=== PATIENT | female | born 1930 | race Caucasian/White ===

== ENCOUNTER 2018-10-05 12:41 | Observation (INO) ==
[2018-10-05 14:10] LABS: BASOPHILS # (AUTO) 0.1 X10^3/uL (0.0-0.1); BASOPHILS % (AUTO) 0.9 % (0.2-1.0); EOSINOPHILS # (AUTO) 0.2 x10^3/uL (0.0-0.2); EOSINOPHILS % (AUTO) 3.9 % (0.9-2.9); HEMATOCRIT 36.8 % (36.0-47.0); HEMOGLOBIN 12.5 g/dL (12.0-16.0); LYMPHOCYTES # (AUTO) 1.9 X10^3/uL (1.3-2.9); LYMPHOCYTES % (AUTO) 31.5 % (21.0-51.0); MEAN CORPUSCULAR HEMOGLOBIN 31.2 pg (27.0-34.0); MEAN CORPUSCULAR HGB CONC 33.8 g/dL (33.0-35.0); MEAN CORPUSCULAR VOLUME 92.1 fL (80.0-100.0); MEAN PLATELET VOLUME 9.1 fL (7.4-11.0); MONOCYTES # (AUTO) 0.5 x10^3/uL (0.3-0.8); MONOCYTES % (AUTO) 9.3 % (0.0-13.0); NEUTROPHILS # (AUTO) 3.2 x10^3/uL (2.2-4.8); NEUTROPHILS % (AUTO) 54.4 % (42.0-75.0); PLATELET COUNT 183 X10^3/uL (150.0-450.0); WHITE BLOOD COUNT 5.9 X10^3/uL (3.6-10.0)
[2018-10-05 14:22] VITALS: BMI 26.0
[2018-10-05 14:51] LABS: ALANINE AMINOTRANSFERASE 12 Units/L (12-78); ALBUMIN 3.4 g/dL (3.4-5.0); ALKALINE PHOSPHATASE 49 Units/L (46-116); ASPARTATE AMINO TRANSFERASE 18 Units/L (15-37); BLOOD UREA NITROGEN 21 mg/dL (7-18); CARBON DIOXIDE 21.8 mmol/L (21-32); CHLORIDE 110 mmol/L (98-107); CKMB % 2.7 % (<4); CREATINE KINASE 56 Units/L (26-192); CREATINE KINASE MB 1.5 ng/mL (0-4.0); CREATININE 1.41 mg/dL (0.55-1.02); SODIUM 142 mmol/L (136-145); TOTAL PROTEIN 6.6 g/dL (6.4-8.2); TROPONIN I < 0.02 ng/mL (0-1.5); eGFR NON BLACK RACES 38 (>60)
--- NOTE | 2018-10-05 15:25 | CT ---
HISTORY: Difficulty speaking Study: CT brain without contrast Comparison: MRI of the brain and MRA of the brain both performed March 20, 2014 Technique: Multiple axial images of the brain were obtained from the skull base to the vertex without administration of IV contrast. Findings: No acute intraparenchymal hemorrhage or mass can be identified. No extra-axial fluid collections are seen. No alteration in the attenuation of the brain parenchyma can be identified to suggest acute or subacute ischemic change. Ventricles, sulci, and cisterns demonstrate an appearance consistent with a mild degree of generalized atrophy. Patchy areas of decreased attenuation within the periventricular, subcortical, and subinsular white matter suggest changes of chronic small vessel ischemic disease. Patchy areas of decreased attenuation within the periventricular, subcortical, and subinsular white matter suggest changes of chronic small vessel ischemic disease. Postoperative changes of suspected prior aneurysm clipping are noted on the left. Bilateral basal ganglia calcifications are noted. If symptoms or clinical concern persist recommend continued follow-up for further evaluation. IMPRESSION: No acute intracranial process can be identified. Mild generalized atrophy with findings consistent with changes of chronic small vessel ischemic disease. Reported By:
[2018-10-05] MEDS ORDERED: PHARMACY CONSULT - DOSE _____ XX SCH (16:00)
[2018-10-05] MEDS: NS 1000 ML 1,000 ML IV SCH (16:28)
--- NOTE | 2018-10-05 17:27 | RAD ---
Chest PA and lateral Indication: Left head pain. Possible aneurysm. Comparison: None available Findings: There is no pneumothorax or effusion. There is no consolidation. Heart size is prominent. Impression: Borderline COPD and prominent heart size without other acute chest process identified. Reported By:
[2018-10-06 04:59] LABS: BASOPHILS % (AUTO) 0.9 % (0.2-1.0); EOSINOPHILS # (AUTO) 0.3 x10^3/uL (0.0-0.2); EOSINOPHILS % (AUTO) 4.7 % (0.9-2.9); HEMATOCRIT 34.3 % (36.0-47.0); HEMOGLOBIN 11.6 g/dL (12.0-16.0); LYMPHOCYTES # (AUTO) 1.6 X10^3/uL (1.3-2.9); LYMPHOCYTES % (AUTO) 30.5 % (21.0-51.0); MEAN CORPUSCULAR HEMOGLOBIN 31.4 pg (27.0-34.0); MEAN CORPUSCULAR HGB CONC 33.8 g/dL (33.0-35.0); MEAN CORPUSCULAR VOLUME 92.9 fL (80.0-100.0); MEAN PLATELET VOLUME 9.3 fL (7.4-11.0); MONOCYTES # (AUTO) 0.5 x10^3/uL (0.3-0.8); MONOCYTES % (AUTO) 9.5 % (0.0-13.0); NEUTROPHILS # (AUTO) 2.9 x10^3/uL (2.2-4.8); NEUTROPHILS % (AUTO) 54.4 % (42.0-75.0); PLATELET COUNT 170 X10^3/uL (150.0-450.0); RED BLOOD COUNT 3.69 X10^6/uL (3.5-5.4); RED CELL DISTRIBUTION WIDTH 14.6 % (11.6-16.5); WHITE BLOOD COUNT 5.4 X10^3/uL (3.6-10.0)
[2018-10-06 05:04] LABS: ALANINE AMINOTRANSFERASE 11 Units/L (12-78); ALBUMIN 2.8 g/dL (3.4-5.0); ALKALINE PHOSPHATASE 41 Units/L (46-116); ASPARTATE AMINO TRANSFERASE 14 Units/L (15-37); BLOOD UREA NITROGEN 21 mg/dL (7-18); CALCIUM 8.4 mg/dL (8.5-10.1); CHLORIDE 113 mmol/L (98-107); COR CA(FOR HYPOALB) 9.4 mg/dL (8.5-10.1); SODIUM 146 mmol/L (136-145); TOTAL PROTEIN 5.6 g/dL (6.4-8.2); eGFR NON BLACK RACES 35 (>60)
[2018-10-06] MEDS: NS 1000 ML 1,000 ML IV SCH (06:00)
[2018-10-06] MEDS ORDERED: NS 1/2 1000 ML IV 1,000 ML ONE (07:58)
[2018-10-06] MEDS ORDERED: NS 1/2 1000 ML IV 1,000 ML IV SCH (08:00)
[2018-10-06] MEDS ORDERED: NS 1000 ML 1,000 ML IV SCH (08:00)
--- NOTE | 2018-10-06 11:46 | DR.UPDATE ---
H&P Update History and Physical Update: History and Physical reviewed and patient examined. Changes noted: Yes with the following: PRESENTED TO THE OFFICE WITH SLURRED SPEECH, WEAKNESS, AND UNSTEADY GAIT. SHE WAS ADMITTED FOR FURTHER EVALUATION AND TREATMENT TO RULE OUT ACUTE CVA. ON ADMISSION, WE PLAN TO OBTAIN LABS AND A BRAIN CT WITHOUT CONTRAST. WE WILL HAVE PHYSICAL THERAPY EVALUATE PATIENT. OTHERWISE, WE WILL NORMAL SALINE AT 80ML/HR AND FOLLOW UP WITH AM LABS. Prescription drug monitoring program results: PDMP reviewed and no concerns identified
--- NOTE | 2018-10-06 13:20 | CT ---
Exam: Head CT without contrast History: 88-year-old female with weakness and unsteady gait. Previous intracranial aneurysm in 2013. Comparison: Head CT from 10/05/2018. Technique: Axial imaging was performed from the vertex to the base the skull without intravenous contrast being administered. Sagittal and coronal reformations were generated. Automated exposure control techniques were used for this exam. Findings: Generalized age related atrophic changes are present. However there is no evidence of intracranial hemorrhage or extracerebral fluid collections. Postoperative changes related to previous aneurysm clipping are again seen on the left. Ventricles are symmetric in size and position with no mass effect seen. Patchy low density is present in a periventricular white matter distribution, consistent with chronic small vessel ischemia. On the bone windows, no acute bony abnormality is seen. Visualized aspect of the paranasal sinuses and mastoid air cells are clear. Impression: No acute intracranial abnormality is seen on this study. Chronic findings as described above. Reported By:
[2018-10-06 13:52] VITALS: BP 125/64
== END 2018-10-06 16:05 | disposition home or self-care (01) ==
LOC: ICU
PROVIDERS: ADMIT Internal Medicine; ATTEND Internal Medicine
DX: I10 Essential (primary) hypertension; K21.9 Gastro-esophageal reflux disease without esophagitis; R47.81 Slurred speech; E03.8 Other specified hypothyroidism; Z79.899 Other long term (current) drug therapy; R51 Headache; R94.4 Abnormal results of kidney function studies; R26.0 Ataxic gait
CPT/HCPCS: 36415; 70450; 71020; 71046; 80053; 82550; 82553; 84484; 85025; 96367; 97162; 97165; A4222; G0378; J7030

== ENCOUNTER 2019-03-07 04:32 | Observation (INO) ==
[2019-03-07 04:46] VITALS: BMI 26.4
--- NOTE | 2019-03-07 04:57 | DR.GENAD ---
HPI Time Seen Time Seen by Provider: 03/07/19 04:49 PCP Primary Care Physician: TAMIR ZENG Complaint/Symptoms Chief Complaint Doctors Comments: An 88 y/o female presenting with c/o being awakened from sleep 0200 hrs. by pain. Location is in LLQ, she describes it as sharp and it worsens with supine position but eases a bit while asit. She had ta crista 2 tabs. of Extra Strength Tylenol at 0215 hrs. She gave a hx. previous Diverticulitis. Chief Complaint:: LLQ PAIN THIS EVENING; TYLENOL X 3 TAKEN AT 0300; RATES PAIN 8/10; PATIENT HAS HX OF DIVERTICULITIS Self Treatment fo Chief Complaint: TYLENOL Source History Provided: Patient Mode of Arrival Mode of Arrival: Ambulatory Timing Onset of Chief Complaint: 03/06/19 Came on: Gradually PMH PMH Past Medical History: Yes Past Medical History Comment: DIVERTICULITIS Past Surgical History: Yes Past Surgical History Comment: ANEURYSM Family History History of Family Medical Conditions: No Family Medical History: [place], Heart Failure and Hypertension Social History Alcohol Use: None Do you use any recreational Drugs:: No Lives With: Family Lives Where: Home infectious screening In the last 2 months have you had wt loss of >10#?: NO Have you had fever, night sweats or hemotysis?: No Have you traveled outside the country in the last 6 months?: No Isolation: Standard ROS Review of Systems Constitutional: No Symptoms Reported Eyes: No Symptoms Reported ENTM: No Symptoms Reported Respiratoy: No Symptoms Reported Cardiovascular: No Symptoms Reported Gastrointestinal/Abdominal: Abdominal Pain (LLQ) Genitourinary: No Symptoms Reported Neurological: No Symptoms Reported Musculoskeletal: No Symptoms Reported Integumentary: No Symptoms Reported Hematologic/Lymphatic: No Symptoms Reported Endocrine: No Symptoms Reported Psychiatric: No Symptoms Reported PE Vital Signs Vitals: Temperature 97.6 F Pulse Rate 90 Respiratory Rate 22 Blood Pressure 143/66 O2 Sat by Pulse Oximetry 98 General Limitations: No Limitations General Appearance: Alert and In No Apparent Distress Head Head Exam: Normal Inspection, Atraumatic and Normocephalic Eyes Eye exam: Normal Appearance and EOMI ENT ENT Exam: Normal Exam, Normal Oropharynx and Mucous Membranes Moist Neck Neck Exam: Normal Inspection, Full ROM and Trachea Midline Chest Chest Inspection: Normal Inspection and Symmetric Chest Wall Rise Respiratory Respiratory Exam: Normal Lung Sounds Bilat Cardiovascular Cardiovascular Exam: Regular Rate, Normal Rhythm, +S1 and +S2 Abdominal Exam Abdominal Exam: Normal Inspection, Normal Bowel Sounds and Soft Extremities Extremities Exam: Normal Inspection and Full ROM Back Back Exam: Normal Inspection and Full ROM Neurologic Neurological Exam: Alert and Oriented X3 Psychiatric Psychiatric Exam: Normal Mood and Agitated Skin Skin Exam: Dry and Normal Color COURSE Reevaluation 1st: Improved Education/Counseling Education/Counseling: Patient, Family, Education and Counseling Educated On: Treatment, Diagnosis, Prognosis and Needs for Follow Up ROR Labs Reviewed Laboratory Results Reviewed?: Yes Result Diagrams: 03/07/19 05:10 03/07/19 05:10 Laboratory: WBC 8.1 X10^3/uL (3.6-10.0) 03/07/19 05:10 RBC 4.39 X10^6/uL (3.5-5.4) 03/07/19 05:10 Hgb 13.7 g/dL (12.0-16.0) 03/07/19 05:10 Hct 41.3 % (36.0-47.0) 03/07/19 05:10 MCV 94.1 fL (80.0-100.0) 03/07/19 05:10 MCH 31.2 pg (27.0-34.0) 03/07/19 05:10 MCHC 33.1 g/dL (33.0-35.0) 03/07/19 05:10 RDW 14.1 % (11.6-16.5) 03/07/19 05:10 Plt Count 194 X10^3/uL (150.0-450.0) 03/07/19 05:10 MPV 8.9 fL (7.4-11.0) 03/07/19 05:10 Neut % (Auto) 83.9 % (42.0-75.0) H 03/07/19 05:10 Lymph % (Auto) 11.2 % (21.0-51.0) L 03/07/19 05:10 [place] % (Auto) 3.0 % (0.0-13.0) 03/07/19 05:10 Eos % (Auto) 1.7 % (0.9-2.9) 03/07/19 05:10 Baso % (Auto) 0.2 % (0.2-1.0) 03/07/19 05:10 Neut # (Auto) 6.8 x10^3/uL (2.2-4.8) H 03/07/19 05:10 Lymph # (Auto) 0.9 X10^3/uL (1.3-2.9) L 03/07/19 05:10 [place] # (Auto) 0.2 x10^3/uL (0.3-0.8) L 03/07/19 05:10 Eos # (Auto) 0.1 x10^3/uL (0.0-0.2) 03/07/19 05:10 Baso # (Auto) 0.0 X10^3/uL (0.0-0.1) 03/07/19 05:10 Absolute Nucleated RBC 0.0 /100WBC 03/07/19 05:10 Sodium 144 mmol/L (136-145) 03/07/19 05:10 Corrected Sodium TNP 03/07/19 05:10 Potassium 3.8 mmol/L (3.5-5.1) 03/07/19 05:10 Chloride 108 mmol/L (98-107) H 03/07/19 05:10 Carbon Dioxide 26.5 mmol/L (21-32) 03/07/19 05:10 BUN 23 mg/dL (7-18) H 03/07/19 05:10 Creatinine 1.55 mg/dL (0.55-1.02) H 03/07/19 05:10 Est GFR (MDRD) Af Amer 41 (>60) L 03/07/19 05:10 Est GFR (MDRD) Non-Af 34 (>60) L 03/07/19 05:10 Glucose 101 mg/dL (65-99) H 03/07/19 05:10 Calcium 9.1 mg/dL (8.5-10.1) 03/07/19 05:10 Corrected Calcium TNP 03/07/19 05:10 Total Bilirubin 0.30 mg/dL (0.2-1.0) 03/07/19 05:10 AST 15 Units/L (15-37) 03/07/19 05:10 ALT 11 Units/L (12-78) L 03/07/19 05:10 Alkaline Phosphatase 54 Units/L (46-116) 03/07/19 05:10 Total Protein 6.9 g/dL (6.4-8.2) 03/07/19 05:10 Albumin 3.4 g/dL (3.4-5.0) 03/07/19 05:10 Globulin 3.5 g/dL (2.5-4.5) 03/07/19 05:10 Albumin/Globulin Ratio 1.0 Ratio (1.1-2.1) L 03/07/19 05:10 Other Results Comments: Name: ROYAL LUNDBERG : 1930 Sex: F Location: ER Order Number(s): [id number] Procedure(s):ABDOMEN/PELVIS W/O CON Ordering Physician: MELINDA HOPPER Primary Care: Tamir Zeng Service Date: 03/07/19 Service Time: 448 History: Left abdominal and flank pain new Study: CT abdomen and pelvis without intravenous contrast. After oral enhancement of the gastrointestinal tract. Sagittal and coronal reformations were provided. Comparison: None Findings: The visualized lung bases are grossly clear. The liver and spleen and pancreas are unremarkable. There is a peripherally calcified low-attenuation mass in the upper pole of the left kidney measuring up to 8.3 cm in diameter. Calcification in the wall is thickened and irregular There marked thinning of left renal cortex. There is no hydronephrosis. The right kidney is unremarkable. The adrenal glands are unremarkable. The gallbladder is normal. There is a atherosclerotic calcification without aneurysm. There is no ascites or adenopathy. There is severe sigmoid diverticulosis without stranding of fat planes. Mesenteric lymph nodes adjacent to the cecum AP and the. There is no adnexal mass .The bladder is empty . There are prominent degenerative changes in the lumbar spine. Impression: 8.3 cm rounded peripherally calcified low attenuation mass in the upper pole of the left kidney with marked left renal cortical thinning. Bosniak class 3 mass. Sigmoid diverticulosis without evidence for inflammation. Reported By: Opioid Opioid Risk Tool Age (Geovanni box if 16-45): No History of Preadolescent Sexual Abuse: No Total: 0 Total Score Risk Category: Low Risk Copyright: [place] LR predicting aberrant behaviors Diagnosis Discharge Problem: Mass of left kidney Abdominal pain Qualifiers: Abdominal location: left lower quadrant Qualified Code(s): R10.32 - Left lower quadrant pain
[2019-03-07 05:23] LABS: BASOPHILS % (AUTO) 0.2 % (0.2-1.0); EOSINOPHILS # (AUTO) 0.1 x10^3/uL (0.0-0.2); EOSINOPHILS % (AUTO) 1.7 % (0.9-2.9); HEMATOCRIT 41.3 % (36.0-47.0); HEMOGLOBIN 13.7 g/dL (12.0-16.0); LYMPHOCYTES # (AUTO) 0.9 X10^3/uL (1.3-2.9); LYMPHOCYTES % (AUTO) 11.2 % (21.0-51.0); MEAN CORPUSCULAR HEMOGLOBIN 31.2 pg (27.0-34.0); MEAN CORPUSCULAR HGB CONC 33.1 g/dL (33.0-35.0); MEAN CORPUSCULAR VOLUME 94.1 fL (80.0-100.0); MEAN PLATELET VOLUME 8.9 fL (7.4-11.0); MONOCYTES # (AUTO) 0.2 x10^3/uL (0.3-0.8); NEUTROPHILS # (AUTO) 6.8 x10^3/uL (2.2-4.8); NEUTROPHILS % (AUTO) 83.9 % (42.0-75.0); PLATELET COUNT 194 X10^3/uL (150.0-450.0); RED BLOOD COUNT 4.39 X10^6/uL (3.5-5.4); RED CELL DISTRIBUTION WIDTH 14.1 % (11.6-16.5); WHITE BLOOD COUNT 8.1 X10^3/uL (3.6-10.0)
[2019-03-07 05:31] LABS: BLOOD UREA NITROGEN 23 mg/dL (7-18); CALCIUM 9.1 mg/dL (8.5-10.1); CARBON DIOXIDE 26.5 mmol/L (21-32); CHLORIDE 108 mmol/L (98-107); CREATININE 1.55 mg/dL (0.55-1.02); SODIUM 144 mmol/L (136-145); eGFR NON BLACK RACES 34 (>60)
[2019-03-07 05:52] LABS: ALANINE AMINOTRANSFERASE 11 Units/L (12-78); ALBUMIN 3.4 g/dL (3.4-5.0); ALKALINE PHOSPHATASE 54 Units/L (46-116); ASPARTATE AMINO TRANSFERASE 15 Units/L (15-37); TOTAL PROTEIN 6.9 g/dL (6.4-8.2)
--- NOTE | 2019-03-07 07:44 | CT ---
History: Left abdominal and flank pain newStudy: CT abdomen and pelvis without intravenous contrast. After oral enhancement of the gastrointestinal tract. Sagittal and coronal reformations were provided.Comparison: NoneFindings: The visualized lung bases are grossly clear. The liver and spleen and pancreas are unremarkable. There is a peripherally calcified low-attenuation mass in the upper pole of the left kidney measuring up to 8.3 cm in diameter. Calcification in the wall is thickened and irregular There marked thinning of left renal cortex. There is no hydronephrosis. The right kidney is unremarkable. The adrenal glands are unremarkable. The gallbladder is normal. There is a atherosclerotic calcification without aneurysm. There is no ascites or adenopathy. There is severe sigmoid diverticulosis without stranding of fat planes. Mesenteric lymph nodes adjacent to the cecum AP and the. There is no adnexal mass .The bladder is empty . There are prominent degenerative changes in the lumbar spine.Impression: 8.3 cm rounded peripherally calcified low attenuation mass in the upper pole of the left kidney with marked left renal cortical thinning. Bosniak class 3 mass.Sigmoid diverticulosis without evidence for inflammation.Reported By:
[2019-03-07] MEDS ORDERED: NORCO 5/325 MG TAB PO PRN (08:23)
[2019-03-07] MEDS: NS 1000 ML 1,000 ML IV SCH ×2 (09:21→21:06)
[2019-03-07] MEDS: TYLENOL 325 MG TAB PO PRN (12:33)
--- NOTE | 2019-03-07 21:40 | DR.H&P ---
H&P - History & Physical for Day of: H&P Date: 03/07/19 - Chief Complaint Chief Complaint: LLQ PAIN - History of Present Illness History of Present Illness: IS A 88 YEAR OLD PATIENT OF OURS WHO PRESENTED TO THE ER WITH COMPLAINTS OF LLQ PAIN. PAIN IS DESCRIBED SHARP AND WORSENS WHEN SHE IS IN THE SUPINE POSITION. SHE HAS A HISTORY OF DIVERTICULITIS AND RENAL DISEASE. SHE REPORTS THAT RIGHT KIDNEY IS FUNCTIONING AT 40% AND LEFT KIDNEY 0%. ON ARRIVAL, VITALS WERE 97.6-90-22-98%-143/66. LABS WERE OBTAINED. ABNORMAL LAB VALUES INCLUDE THE FOLLOWING: CHLORIDE 108, BUN 23, CREATININE 1.55, GLUCOSE 101, ALT 11. AN ABDOMEN/PELVIS CT WAS OBTAINED AND REVEALED: 8.3 cm rounded peripherally calcified low attenuation mass in the upper pole of the left kidney with marked left renal cortical thinning. Bosniak class 3 mass. Sigmoid diverticulosis without evidence for inflammation. SHE WAS ADMITTED FOR FURTHER EVALUATION AND TREATMENT OF OF LLQ ABDOMINAL PAIN AND LEFT RENAL MASS. SHE WAS STARTED ON NORMAL SALINE AT 80ML/HR AND [place] 5/325 1 TABLET Q6H PRN PAIN. OTHERWISE, WE PLAN TO FOLLOW UP WITH AM LABS AND CONTINUE TO MONITOR. - Family History Family Medical History: ME, Heart Failure, Hypertension - Social History Does patient currently use any type of tobacco product: No Have you used tobacco products in the last 12 months: No Type of Tobacco Use: None Does any household member use tobacco: No Alcohol Use: None Drug Use: None - Medications Home Medications: No Known Drug Allergies Allergy (Verified 10/05/18 13:43) CONTINUE taking the following medications albuterol sulfate [Ventolin HFA] 2 inh INHALATION Q4H PRN 03/07/19 [History] fluticasone propionate [Flonase Allergy Relief] 1 mcg INTRANASAL DAILY 03/07/19 [History] valsartan 320 mg PO DAILY 03/07/19 [History] - Review of Systems Constitutional: Weakness Eyes: No Symptoms Reported ENT: No Symptoms Reported Respiratory: No Symptoms Reported Cardiovascular: No Symptoms Reported Gastrointestinal: See HPI, Abdominal Pain Genitourinary: No Symptoms Reported Musculoskeletal: No Symptoms Reported Skin: No Symptoms Reported Neurological: Weakness - Physical Exam Vital Signs: Temperature 98.9 F Pulse Rate [Right Brachial] 86 Pulse Rate 90 Respiratory Rate 18 Blood Pressure [Right Arm] 152/58 Blood Pressure 143/66 O2 Sat by Pulse Oximetry 97 Oriented: Normal Eyes: Normal Ear: Normal Nose: Normal Throat: Normal Respiratory: Diminished Throughout Cardiovascular: Normal. negative: S3, S4, Murmur : Normal Auscultation: Bowel Sounds: Normal Palpation: Normal Tenderness: LLQ, Moderate. negative: Rebound, Guarding, Rigidity Skin: Normal Musculoskeletal: Normal Psychiatric: Normal Mood Description: Calm Affect: Normal Speech Pattern: Clear - Assessment/Plan (1) Abdominal pain Qualifiers: Abdominal location: left lower quadrant Qualified Code(s): R10.32 - Left lower quadrant pain Status: Acute Plan: ADMIT, NORMAL SALINE AT 80ML/HR, [place], OBTAIN RECORDS FROM HOUSEHOLD APPLIANCE ASSEMBLER, CONTINUE TO MONITOR (2) Mass of left kidney Status: Acute - Allergies Allergies/Adverse Reactions: Allergies Allergy/AdvReac Type Severity Reaction Status Date / Time No Known Drug Allergies Allergy Verified 10/05/18 13:43
[2019-03-08 05:38] LABS: BASOPHILS % (AUTO) 0.2 % (0.2-1.0); EOSINOPHILS # (AUTO) 0.2 x10^3/uL (0.0-0.2); EOSINOPHILS % (AUTO) 1.8 % (0.9-2.9); HEMATOCRIT 34.1 % (36.0-47.0); HEMOGLOBIN 11.5 g/dL (12.0-16.0); LYMPHOCYTES # (AUTO) 1.3 X10^3/uL (1.3-2.9); LYMPHOCYTES % (AUTO) 14.6 % (21.0-51.0); MEAN CORPUSCULAR HEMOGLOBIN 31.4 pg (27.0-34.0); MEAN CORPUSCULAR HGB CONC 33.8 g/dL (33.0-35.0); MEAN CORPUSCULAR VOLUME 93.1 fL (80.0-100.0); MONOCYTES # (AUTO) 0.5 x10^3/uL (0.3-0.8); MONOCYTES % (AUTO) 5.6 % (0.0-13.0); NEUTROPHILS # (AUTO) 6.8 x10^3/uL (2.2-4.8); NEUTROPHILS % (AUTO) 77.8 % (42.0-75.0); PLATELET COUNT 169 X10^3/uL (150.0-450.0); RED BLOOD COUNT 3.66 X10^6/uL (3.5-5.4); RED CELL DISTRIBUTION WIDTH 14.1 % (11.6-16.5); WHITE BLOOD COUNT 8.8 X10^3/uL (3.6-10.0)
[2019-03-08 05:41] LABS: ALANINE AMINOTRANSFERASE 6 Units/L (12-78); ALBUMIN 2.6 g/dL (3.4-5.0); ALKALINE PHOSPHATASE 45 Units/L (46-116); ASPARTATE AMINO TRANSFERASE 12 Units/L (15-37); BLOOD UREA NITROGEN 19 mg/dL (7-18); CALCIUM 8.1 mg/dL (8.5-10.1); CARBON DIOXIDE 25.9 mmol/L (21-32); CHLORIDE 108 mmol/L (98-107); COR CA(FOR HYPOALB) 9.2 mg/dL (8.5-10.1); CREATININE 1.37 mg/dL (0.55-1.02); SODIUM 141 mmol/L (136-145); TOTAL PROTEIN 5.7 g/dL (6.4-8.2); eGFR NON BLACK RACES 39 (>60)
[2019-03-08] MEDS: TYLENOL 325 MG TAB PO PRN (09:22)
[2019-03-08] MEDS: NS 1000 ML 1,000 ML IV SCH ×2 (09:23→11:01)
[2019-03-08] MEDS: LIPITOR TAB 20 MG PO SCH (10:56)
[2019-03-08] MEDS: DIOVAN TAB 160 MG PO SCH (10:56)
[2019-03-08] MEDS: PROTONIX TAB 40 MG PO SCH ×2 (10:56→20:09)
[2019-03-08] MEDS: ECOTRIN TAB 325 MG PO SCH (10:57)
[2019-03-08] MEDS: FLONASE NASAL SPRAY ENOSTRIL SCH (10:57)
[2019-03-08] MEDS: SYNTHROID 75 mcg TAB PO SCH (11:01)
[2019-03-08] MEDS ORDERED: RANITIDINE HCL 150 MG PO SCH (21:00)
[2019-03-08] MEDS ORDERED: SINGULAIR TAB 10 MG PO SCH (21:00)
[2019-03-09] MEDS: NS 1000 ML 1,000 ML IV SCH (00:37)
[2019-03-09 05:22] LABS: BASOPHILS # (AUTO) 0.1 X10^3/uL (0.0-0.1); BASOPHILS % (AUTO) 0.6 % (0.2-1.0); EOSINOPHILS # (AUTO) 0.3 x10^3/uL (0.0-0.2); EOSINOPHILS % (AUTO) 4.1 % (0.9-2.9); HEMOGLOBIN 10.6 g/dL (12.0-16.0); LYMPHOCYTES # (AUTO) 1.2 X10^3/uL (1.3-2.9); LYMPHOCYTES % (AUTO) 14.7 % (21.0-51.0); MEAN CORPUSCULAR HEMOGLOBIN 31.6 pg (27.0-34.0); MEAN CORPUSCULAR HGB CONC 34.1 g/dL (33.0-35.0); MEAN CORPUSCULAR VOLUME 92.7 fL (80.0-100.0); MEAN PLATELET VOLUME 8.7 fL (7.4-11.0); MONOCYTES # (AUTO) 0.7 x10^3/uL (0.3-0.8); MONOCYTES % (AUTO) 8.4 % (0.0-13.0); NEUTROPHILS # (AUTO) 5.9 x10^3/uL (2.2-4.8); NEUTROPHILS % (AUTO) 72.2 % (42.0-75.0); PLATELET COUNT 151 X10^3/uL (150.0-450.0); RED BLOOD COUNT 3.34 X10^6/uL (3.5-5.4); RED CELL DISTRIBUTION WIDTH 13.8 % (11.6-16.5); WHITE BLOOD COUNT 8.2 X10^3/uL (3.6-10.0)
[2019-03-09 05:41] LABS: ALANINE AMINOTRANSFERASE 8 Units/L (12-78); ALBUMIN 2.2 g/dL (3.4-5.0); ALKALINE PHOSPHATASE 45 Units/L (46-116); ASPARTATE AMINO TRANSFERASE 13 Units/L (15-37); BLOOD UREA NITROGEN 14 mg/dL (7-18); CALCIUM 7.6 mg/dL (8.5-10.1); CARBON DIOXIDE 23.3 mmol/L (21-32); CHLORIDE 110 mmol/L (98-107); CREATININE 1.13 mg/dL (0.55-1.02); SODIUM 141 mmol/L (136-145); TOTAL PROTEIN 5.3 g/dL (6.4-8.2); eGFR NON BLACK RACES 49 (>60)
[2019-03-09] MEDS ORDERED: K-RIDER 10 MEQ/NS 100 ML 10 MEQ/100 ML BAG IV PRN (05:44)
[2019-03-09] MEDS ORDERED: MICRO K EXTEN CAP 10 MEQ PO PRN (05:44)
[2019-03-09] MEDS ORDERED: KLOR-CON PO PRN (05:44)
[2019-03-09] MEDS ORDERED: POTASSIUM CHL 60 MEQ/NS 0.45% 500 ML IV PRN (05:44)
[2019-03-09] MEDS ORDERED: K-DUR TAB 20 MEQ PO PRN (05:44)
[2019-03-09] MEDS ORDERED: POTASSIUM CHLORIDE LIQ 20 MEQ UDC PO PRN (05:44)
[2019-03-09] MEDS ORDERED: POTASSIUM CHL 40 MEQ/NS 0.45% 500 ML IV PRN (05:44)
[2019-03-09] MEDS: MAGNESIUM SULFATE 1 GRAM/100 mL PREMIX 1 GM/100 ML BAG IV PRN ×2 (06:41→08:41)
[2019-03-09] MEDS: SYNTHROID 75 mcg TAB PO SCH (06:41)
[2019-03-09 08:23] VITALS: BP 143/73
[2019-03-09] MEDS: DIOVAN TAB 160 MG PO SCH (08:41)
[2019-03-09] MEDS: LIPITOR TAB 20 MG PO SCH (08:42)
[2019-03-09] MEDS: FLONASE NASAL SPRAY ENOSTRIL SCH (08:42)
[2019-03-09] MEDS: ECOTRIN TAB 325 MG PO SCH (08:42)
[2019-03-09] MEDS: PROTONIX TAB 40 MG PO SCH (08:42)
--- NOTE | 2019-03-09 10:03 | PCM.PROG ---
Progress Note - Progress Note for Day of Date of Exam: 03/08/19 - Subjective Subjective: WAS ADMITTED FOR LLQ ABDOMINAL PAIN AND A LEFT RENAL MASS. TODAY, SHE IS ALERT AND ORIENTED, LYING IN BED ON MORNING ROUNDS. SHE CONTINUES WITH COMPLAINTS OF ABDOMINAL PAIN TODAY, BUT REPORTS SLIGHT IMPROVEMENT SINCE YESTERDAY. ON EXAMINATION, HEART IS REGULAR IN RATE AND RHYTHM. ABDOMEN IS ROUND, SOFT, AND NOTED WITH LLQ TENDERNESS. NORMAL BOWEL SOUNDS ARE NOTED IN ALL QUADRANTS. HER VITALS THIS MORNING ARE: 99.4-97-20-97%-173/71. LABS WERE OBTAINED. ABNORMAL LAB VALUES INCLUDE THE FOLLOWING: HGB 11.5, HCT 34.1, CHLORIDE 108, BUN 19, CREATININE 1.37, CALCIUM 8.1, AST 12, ALT 6, ALK PHOS 45, TOTAL PROTEIN 5.7, ALBUMIN 2.6. TODAY, WE WILL CONTINUE WITH IV HYDRATION AND PAIN MANAGEMENT. WE WILL OBTAIN RECORDS FROM HER ANY COMMODITY SALES DELIVERER. OTHERWISE, WE WILL FOLLOW UP WITH AM LABS AND CONTINUE TO MONITOR. - Past Medical Family Social History Past Med/Fam/Surg Hx: No changes since H&P Allergies: Allergies No Known Drug Allergies Allergy (Verified 10/05/18 13:43) - Review of Systems ROS: No change since H&P - Vital Signs and I&O's Vital Signs: Temperature 97.8 F Pulse Rate [Right Brachial] 76 Pulse Rate 90 Respiratory Rate 18 Blood Pressure [Right Arm] 143/73 Blood Pressure 143/66 O2 Sat by Pulse Oximetry 96 Intake and Output: Intake & Output 03/06/19 03/07/19 03/08/19 03/09/19 11:59 11:59 11:59 11:59 Intake Total 1240 / 1240 1370 / 1370 Balance 1240 / 1240 1370 / 1370 - Physical Exam Oriented: Normal Eyes: Normal Ear: Normal Nose: Normal Throat: Normal Respiratory: Generalized, Diminished Cardiovascular: Normal. negative: S3, S4, Murmur : Normal Auscultation: Bowel Sounds: Normal Tenderness: LLQ, Moderate. negative: Rebound, Guarding, Rigidity Skin: Normal Musculoskeletal: Normal Psychiatric: Normal Mood Description: Calm Affect: Normal Speech Pattern: Clear - Laboratory and Diagnostics Result Diagrams: 03/09/19 04:54 03/09/19 04:54 Labs: Laboratory WBC 8.2 X10^3/uL (3.6-10.0) 03/09/19 04:54 RBC 3.34 X10^6/uL (3.5-5.4) L 03/09/19 04:54 Hgb 10.6 g/dL (12.0-16.0) L 03/09/19 04:54 Hct 31.0 % (36.0-47.0) L 03/09/19 04:54 MCV 92.7 fL (80.0-100.0) 03/09/19 04:54 MCH 31.6 pg (27.0-34.0) 03/09/19 04:54 MCHC 34.1 g/dL (33.0-35.0) 03/09/19 04:54 RDW 13.8 % (11.6-16.5) 03/09/19 04:54 Plt Count 151 X10^3/uL (150.0-450.0) 03/09/19 04:54 MPV 8.7 fL (7.4-11.0) 03/09/19 04:54 Neut % (Auto) 72.2 % (42.0-75.0) 03/09/19 04:54 Lymph % (Auto) 14.7 % (21.0-51.0) L 03/09/19 04:54 [place] % (Auto) 8.4 % (0.0-13.0) 03/09/19 04:54 Eos % (Auto) 4.1 % (0.9-2.9) H 03/09/19 04:54 Baso % (Auto) 0.6 % (0.2-1.0) 03/09/19 04:54 Neut # (Auto) 5.9 x10^3/uL (2.2-4.8) H 03/09/19 04:54 Lymph # (Auto) 1.2 X10^3/uL (1.3-2.9) L 03/09/19 04:54 [place] # (Auto) 0.7 x10^3/uL (0.3-0.8) 03/09/19 04:54 Eos # (Auto) 0.3 x10^3/uL (0.0-0.2) H 03/09/19 04:54 Baso # (Auto) 0.1 X10^3/uL (0.0-0.1) 03/09/19 04:54 Absolute Nucleated RBC 0.1 /100WBC 03/09/19 04:54 Sodium 141 mmol/L (136-145) 03/09/19 04:54 Corrected Sodium TNP 03/09/19 04:54 Potassium 3.5 mmol/L (3.5-5.1) 03/09/19 04:54 Chloride 110 mmol/L (98-107) H 03/09/19 04:54 Carbon Dioxide 23.3 mmol/L (21-32) 03/09/19 04:54 BUN 14 mg/dL (7-18) 03/09/19 04:54 Creatinine 1.13 mg/dL (0.55-1.02) H 03/09/19 04:54 Est GFR (MDRD) Af Amer 59 (>60) 03/09/19 04:54 Est GFR (MDRD) Non-Af 49 (>60) L 03/09/19 04:54 Glucose 94 mg/dL (65-99) 03/09/19 04:54 Calcium 7.6 mg/dL (8.5-10.1) L 03/09/19 04:54 Corrected Calcium 9.0 mg/dL (8.5-10.1) 03/09/19 04:54 Magnesium 1.7 mg/dL (1.7-2.9) 03/09/19 04:54 Total Bilirubin 0.60 mg/dL (0.2-1.0) 03/09/19 04:54 AST 13 Units/L (15-37) L 03/09/19 04:54 ALT 8 Units/L (12-78) L 03/09/19 04:54 Alkaline Phosphatase 45 Units/L (46-116) L 03/09/19 04:54 Total Protein 5.3 g/dL (6.4-8.2) L 03/09/19 04:54 Albumin 2.2 g/dL (3.4-5.0) L 03/09/19 04:54 Globulin 3.1 g/dL (2.5-4.5) 03/09/19 04:54 Albumin/Globulin Ratio 0.7 Ratio (1.1-2.1) L 03/09/19 04:54 - Plan (1) Abdominal pain Status: Acute Qualifiers: Abdominal location: left lower quadrant Qualified Code(s): R10.32 - Left lower quadrant pain Plan: NORMAL SALINE AT 80ML/HR, [place], OBTAIN RECORDS FROM ANY COMMODITY SALES DELIVERER, CONTINUE TO MONITOR (2) Mass of left kidney Status: Acute
== END 2019-03-09 11:10 | disposition home or self-care (01) ==
LOC: ER 04:33 → MED/SURG 04:33
PROVIDERS: ADMIT Internal Medicine; ATTEND Internal Medicine
DX: R26.89 Other abnormalities of gait and mobility; K57.30 Diverticulosis of large intestine without perforation or abscess without bleeding; R94.4 Abnormal results of kidney function studies; N28.89 Other specified disorders of kidney and ureter; R10.32 Left lower quadrant pain; R13.11 Dysphagia, oral phase
CPT/HCPCS: 36415; 74176; 80053; 83735; 85025; 94760; 96360; 96361; 96365; 97162; 99284; A4222; G0378; J3475; J3490; J7030

== ENCOUNTER 2022-07-01 15:04 | Observation (INO) ==
[2022-07-01] MEDS ORDERED: PROVENTIL NEB TX 0.083% 2.5MG/ 3ML NEB PRN (15:58)
[2022-07-01] MEDS ORDERED: TUSSIONEX PENNKINETIC SUSP PO PRN (16:00)
[2022-07-01 16:33] LABS: BASOPHILS # (AUTO) 0.1 X10^3/uL (0.0-0.1); BASOPHILS % (AUTO) 0.8 % (0.2-1.0); EOSINOPHILS # (AUTO) 0.3 x10^3/uL (0.0-0.2); EOSINOPHILS % (AUTO) 3.6 % (0.9-2.9); HEMATOCRIT 37.6 % (36.0-47.0); HEMOGLOBIN 12.6 g/dL (12.0-16.0); LYMPHOCYTES # (AUTO) 1.4 X10^3/uL (1.3-2.9); LYMPHOCYTES % (AUTO) 18.5 % (21.0-51.0); MEAN CORPUSCULAR HEMOGLOBIN 30.6 pg (27.0-34.0); MEAN CORPUSCULAR HGB CONC 33.4 g/dL (33.0-35.0); MEAN CORPUSCULAR VOLUME 91.7 fL (80.0-100.0); MEAN PLATELET VOLUME 7.9 fL (7.4-11.0); MONOCYTES # (AUTO) 0.9 x10^3/uL (0.3-0.8); MONOCYTES % (AUTO) 12.4 % (0.0-13.0); NEUTROPHILS # (AUTO) 4.8 x10^3/uL (2.2-4.8); NEUTROPHILS % (AUTO) 64.7 % (42.0-75.0); RED CELL DISTRIBUTION WIDTH 14.1 % (11.6-16.5); WHITE BLOOD COUNT 7.4 X10^3/uL (3.6-10.0)
[2022-07-01 16:47] LABS: ALANINE AMINOTRANSFERASE 14 Units/L (12-78); ALBUMIN 2.7 g/dL (3.4-5.0); ALKALINE PHOSPHATASE 69 Units/L (46-116); ASPARTATE AMINO TRANSFERASE 22 Units/L (15-37); BLOOD UREA NITROGEN 34 mg/dL (7-18); CALCIUM 11.7 mg/dL (8.5-10.1); CARBON DIOXIDE 27.1 mmol/L (21-32); CHLORIDE 108 mmol/L (98-107); COR CA(FOR HYPOALB) 12.7 mg/dL (8.5-10.1); CREATININE 1.69 mg/dL (0.55-1.02); SODIUM 141 mmol/L (136-145); eGFR NON BLACK RACES 30 (>60)
[2022-07-01] MEDS ORDERED: LEVAQUIN PREMIX IV 500 MG 500 MG/100 ML BAG IV SCH (17:00)
[2022-07-01] MEDS: NS 1/2 1,000 ML IV 1,000 ML IV SCH (18:47)
[2022-07-01] MEDS: ROBITUSSIN DM PO SCH ×2 (18:48→21:01)
[2022-07-01] MEDS: VSL#3 PO SCH (18:48)
[2022-07-01] MEDS ORDERED: NS 1/2 1,000 ML IV 1,000 ML IV ONE (19:11)
--- NOTE | 2022-07-01 21:04 | VAS ---
HISTORYBLE TENDERNESSSTUDYLOWER EXT VENOUS, BILATERALCOMPARISONNo relevant prior studies available.TECHNIQUEGrayscale and color Doppler images of the lower extremities.FINDINGSRight lower extremity:Common femoral, femoral, popliteal and posterior tibial veins demonstrate normal compressibility, color Doppler flow, waveforms and augmentation with no filling defects.Soft tissues: UnremarkableLeft lower extremity:Common femoral, femoral, popliteal and posterior tibial veins demonstrate normal compressibility, color Doppler flow, waveforms and augmentation with no filling defects.Soft tissues:UnremarkableIMPRESSIONNo evidence of deep venous thrombus in either lower extremity.Electronically signed by: Gustavo Parsons (Jul 01, 2022 21:03:02)
--- NOTE | 2022-07-02 01:51 | RAD ---
HISTORYPneumonia Relevant Clinical InformationSTUDYCHEST, 1 VIEWCOMPARISONNone availableFINDINGSHeart size is normal. Interstitial coarsening suggestive of interstitial lung disease. Dense atherosclerotic calcifications within the arch of the aorta. No lobar consolidation or pneumothorax.IMPRESSIONAdvanced, chronic appearing interstitial lung changes.Electronically signed by: Chico Stevens (Jul 02, 2022 01:50:44)
[2022-07-02 05:29] LABS: BASOPHILS # (AUTO) 0.1 X10^3/uL (0.0-0.1); BASOPHILS % (AUTO) 0.7 % (0.2-1.0); EOSINOPHILS # (AUTO) 0.4 x10^3/uL (0.0-0.2); EOSINOPHILS % (AUTO) 4.8 % (0.9-2.9); HEMATOCRIT 33.6 % (36.0-47.0); HEMOGLOBIN 11.5 g/dL (12.0-16.0); LYMPHOCYTES # (AUTO) 1.3 X10^3/uL (1.3-2.9); LYMPHOCYTES % (AUTO) 17.1 % (21.0-51.0); MEAN CORPUSCULAR HEMOGLOBIN 31.4 pg (27.0-34.0); MEAN CORPUSCULAR HGB CONC 34.3 g/dL (33.0-35.0); MEAN CORPUSCULAR VOLUME 91.5 fL (80.0-100.0); MEAN PLATELET VOLUME 8.2 fL (7.4-11.0); MONOCYTES % (AUTO) 13.2 % (0.0-13.0); NEUTROPHILS # (AUTO) 4.8 x10^3/uL (2.2-4.8); NEUTROPHILS % (AUTO) 64.2 % (42.0-75.0); RED BLOOD COUNT 3.68 X10^6/uL (3.5-5.4); WHITE BLOOD COUNT 7.5 X10^3/uL (3.6-10.0)
[2022-07-02 05:50] LABS: ALANINE AMINOTRANSFERASE 13 Units/L (12-78); ALBUMIN 2.3 g/dL (3.4-5.0); ALKALINE PHOSPHATASE 55 Units/L (46-116); ASPARTATE AMINO TRANSFERASE 21 Units/L (15-37); BLOOD UREA NITROGEN 31 mg/dL (7-18); CALCIUM 10.8 mg/dL (8.5-10.1); CARBON DIOXIDE 27.3 mmol/L (21-32); CHLORIDE 108 mmol/L (98-107); COR CA(FOR HYPOALB) 12.2 mg/dL (8.5-10.1); CREATININE 1.66 mg/dL (0.55-1.02); SODIUM 140 mmol/L (136-145); TOTAL PROTEIN 5.2 g/dL (6.4-8.2); eGFR NON BLACK RACES 31 (>60)
--- NOTE | 2022-07-02 06:52 | RAD ---
HISTORYAcute bronchitisSTUDYChest AP [id number] June 2022FINDINGSHeart size is normal. Faith are normal. Aorta is calcified and mildly ectatic but unchanged. Lungs are free of acute alveolar infiltrates. Mild chronic interstitial lung changes are present. No acute alveolar infiltrates or areas of consolidation identified. There is a small area of subsegmental atelectasis in the left lung base. Partial visualization of a calcified lesion in the left upper quadrant of the abdomen is likely the patient's known benign calcified left renal lesion.IMPRESSIONNo acute infiltrateMild interstitial lung changes, chronicSubsegmental atelectasis left lung baseElectronically signed by: PAMELA SERRANO (Jul 02, 2022 06:51:27)
[2022-07-02] MEDS: NS 1/2 1,000 ML IV 1,000 ML IV SCH ×3 (07:56→21:11)
[2022-07-02] MEDS: LEVAQUIN PREMIX IV 250 MG 250 MG/50 ML BAG IV SCH (08:27)
[2022-07-02] MEDS: ROBITUSSIN DM PO SCH ×4 (08:28→21:05)
[2022-07-02] MEDS: VSL#3 PO SCH (08:28)
[2022-07-02] MEDS: LOVENOX INJ 30 MG SYR SC SCH (09:28)
[2022-07-02] MEDS: ALBUMIN HUMAN 25%- 100 ML 100 ML IV SCH (10:19)
[2022-07-02] MEDS: TUSSIONEX PENNKINETIC SUSP PO SCH ×2 (10:47→23:00)
[2022-07-02] MEDS ORDERED: CYMBALTA PO SCH (11:00)
--- NOTE | 2022-07-02 12:23 | DR.UPDATE ---
H&P Update Prescription drug monitoring program results: PDMP reviewed and no concerns identified H&P Reviewed: Yes Any changes to H&P?: Yes Changes noted:: WAS ADMITTED OBSERVATION STATUS FOR TREATMENT OF ACUTE BRONCHITIS, SHORTNESS OF BREATH, GENERALIZED WEAKNESS, AND POOR APPETITE. SHE HAS TAKEN A Z-PACK, AMOXICILLIN 500MG BID X 10 DAYS, A MEDROL DOSEPACK, AND COUGH MEDICATIONS. SHE DENIES IMPROVEMENT IN SYMPTOMS DESPITE COMPLIANCE WITH ALL MEDICATIONS. ADDITIONALLY, SHE COMPLAINS OF WEAKNESS AND TENDERNESS TO BILATERAL LOWER EXTREMITIES, MOSTLY IN THE CALF. ON ADMISSION TO THE HOSPITAL, HER VITALS WERE 97.5-91-20-96%-133/59. LABS WERE OBTAINED. WBC 7.4, RBC 4.10, HGB 12.6, HCT 37.6, PLT COUNT 319, D-DIMER 1.65, SODIUM 141, POTASSIUM 4.4, CHLORIDE 108, CARBON DIOXIDE 27.1, BUN 34, CREATININE 1.69, GLUCOSE 90, CALCIUM 11.7, AST 22, ALT 14, ALK PHOS 69, BNP 132, TOTAL PROTEIN 6.0, ALBUMIN 2.7, D- DIMER 1.65. A RESPIRATORY VIRAL PANEL WAS SET UP. BLOOD AND SPUTUM CULTURES WERE ALSO SET UP. A CHEST XRAY WAS OBTAINED AND REVEALED: Heart size is normal. Interstitial coarsening suggestive of interstitial lung disease. Dense atherosclerotic calcifications within the arch of the aorta. No lobar consolidation or pneumothorax. BILATERAL VENOUS DOPPLER WAS OBTAINED AND REVEALED: No evidence of deep venous thrombus in either lower extremity. SHE WAS STARTED ON NS AT 75 ML/HR, LEVAQUN 250MG IV DAILY, ALBUMIN 25% IV DAILY, PROVENTIL NEBS Q4H PRN, LOVENOX 30MG SC DAILY, ROBITUSSIN DM 10ML QID, TUSSIONEX 5ML Q12H, PROBIOTICS DAILY. WE WILL RESUME HER HOME MEDICATIONS OF PROTONIX, AMLODIPINE, VALSARTAN, AND MONTELUKAST. OTHERWISE, WE WILL FOLLOW-UP WITH AM LABS AND CHEST XRAY AND CONTINUE TO MONITOR. TIME SPENT ON CLINICAL ASSESSMENT, REVIWING LABS AND IMAGING, DECISION MAKING, AND DOCUMENTATION GREATER THAN 75 MINUTES. Patient was examined?: Yes
[2022-07-02] MEDS: SINGULAIR TAB 10 MG PO SCH (13:19)
[2022-07-02] MEDS: PROTONIX TAB 40 MG PO SCH ×2 (13:19→21:05)
[2022-07-02] MEDS: DIOVAN TAB 160 MG PO SCH (13:19)
[2022-07-02] MEDS ORDERED: NS 1/2 1,000 ML IV 1,000 ML IV ONE (13:28)
[2022-07-02] MEDS: DIFLUCAN 100 MG IV (MIX by PHARMACY)* 100 MG/50 ML BAG IV SCH (14:55)
[2022-07-02] MEDS ORDERED: DIFLUCAN 200 MG IV PREMIX* 200 MG/100 ML BAG IV SCH (15:00)
[2022-07-02 15:48] VITALS: BMI 23.6
[2022-07-02] MEDS ORDERED: NORVASC TAB 5 MG PO SCH (21:00)
[2022-07-03] MEDS ORDERED: NS 1/2 1,000 ML IV 1,000 ML IV ONE (04:06)
[2022-07-03] MEDS: NS 1/2 1,000 ML IV 1,000 ML IV SCH (04:50)
[2022-07-03 07:10] LABS: BASOPHILS % (AUTO) 0.4 % (0.2-1.0); EOSINOPHILS # (AUTO) 0.2 x10^3/uL (0.0-0.2); EOSINOPHILS % (AUTO) 2.4 % (0.9-2.9); HEMATOCRIT 29.5 % (36.0-47.0); HEMOGLOBIN 10.1 g/dL (12.0-16.0); LYMPHOCYTES % (AUTO) 15.2 % (21.0-51.0); MEAN CORPUSCULAR HEMOGLOBIN 31.5 pg (27.0-34.0); MEAN CORPUSCULAR HGB CONC 34.4 g/dL (33.0-35.0); MEAN CORPUSCULAR VOLUME 91.6 fL (80.0-100.0); MEAN PLATELET VOLUME 8.2 fL (7.4-11.0); MONOCYTES # (AUTO) 0.9 x10^3/uL (0.3-0.8); MONOCYTES % (AUTO) 13.3 % (0.0-13.0); NEUTROPHILS # (AUTO) 4.7 x10^3/uL (2.2-4.8); NEUTROPHILS % (AUTO) 68.7 % (42.0-75.0); RED BLOOD COUNT 3.22 X10^6/uL (3.5-5.4); RED CELL DISTRIBUTION WIDTH 13.7 % (11.6-16.5); WHITE BLOOD COUNT 6.9 X10^3/uL (3.6-10.0)
[2022-07-03 07:24] LABS: ALANINE AMINOTRANSFERASE 11 Units/L (12-78); ALBUMIN 2.5 g/dL (3.4-5.0); ALKALINE PHOSPHATASE 48 Units/L (46-116); ASPARTATE AMINO TRANSFERASE 20 Units/L (15-37); BLOOD UREA NITROGEN 24 mg/dL (7-18); CARBON DIOXIDE 26.1 mmol/L (21-32); CHLORIDE 106 mmol/L (98-107); COR CA(FOR HYPOALB) 11.2 mg/dL (8.5-10.1); CREATININE 1.42 mg/dL (0.55-1.02); SODIUM 139 mmol/L (136-145); TOTAL PROTEIN 4.9 g/dL (6.4-8.2); eGFR NON BLACK RACES 37 (>60)
[2022-07-03 08:22] VITALS: BP 102/63
[2022-07-03] MEDS: LEVAQUIN PREMIX IV 250 MG 250 MG/50 ML BAG IV SCH (09:08)
[2022-07-03] MEDS: DIFLUCAN 100 MG IV (MIX by PHARMACY)* 100 MG/50 ML BAG IV SCH (09:08)
[2022-07-03] MEDS: ALBUMIN HUMAN 25%- 100 ML 100 ML IV SCH (09:08)
[2022-07-03] MEDS: LOVENOX INJ 30 MG SYR SC SCH (09:10)
[2022-07-03] MEDS: VSL#3 PO SCH (09:11)
[2022-07-03] MEDS: PROTONIX TAB 40 MG PO SCH (09:11)
[2022-07-03] MEDS: ROBITUSSIN DM PO SCH (09:11)
[2022-07-03] MEDS: DIOVAN TAB 160 MG PO SCH (09:12)
[2022-07-03] MEDS: SINGULAIR TAB 10 MG PO SCH (09:12)
--- NOTE | 2022-07-03 11:46 | RAD ---
HISTORYSOB, ACUTE BRONCHITIS Relevant Clinical InformationSTUDYCHEST, 1 [id number]/2023FINDINGSThe trachea is midline. Borderline heart size. There is emphysema with a bandlike atelectasis in the left base. No evidence of pneumothorax or pleural effusions. No dominant alveolar pneumonic radiopacities.There is mild chronic peribronchial thickeningIMPRESSIONEmphysema with atelectatic band at the left baseElectronically signed by: Melvi Hodges (Jul 03, 2022 11:44:46)
== END 2022-07-03 13:50 | disposition home health service (06) ==
LOC: MED/SURG
PROVIDERS: ADMIT Internal Medicine; ATTEND Internal Medicine
DX: K21.9 Gastro-esophageal reflux disease without esophagitis; R53.1 Weakness; J20.8 Acute bronchitis due to other specified organisms; I10 Essential (primary) hypertension; R41.82 Altered mental status, unspecified; R06.02 Shortness of breath; R26.89 Other abnormalities of gait and mobility; E03.8 Other specified hypothyroidism